=== PATIENT | male | born 1990 | race African-American/Black ===

== ENCOUNTER 2018-08-10 20:52 | Emergency (ER) | payer MEDICAID ==
[~2018-08-10] VITALS: Ht 188 cm; Wt 85.3 kg
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
[2018-08-10 21:50] VITALS: BP 139/72
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
--- NOTE | 2018-08-10 22:10 | NUR ---
ED Nurse Note: pt off to x-ray.
[2018-08-10] MEDS ORDERED: CYCLOBENZAPRINE10 MG ORAL (22:46)
[2018-08-10] MEDS ORDERED: IBUPROFEN600 MG ORAL (22:46)
[2018-08-10 22:55] VITALS: BP 139/72
--- NOTE | 2018-08-10 22:55 | NUR ---
ED Nurse Note: pt cleared to be d/c per ER provider, pt discharge and aftercare instruction provided w/ prescription, pt education done via discussion and handout, pt advised to follow up with pcp or return to ed if sx worsen or new sx develop, pt verbalized understanding and agrees with plan, vss, ambulatory w/steady gait, left w/ all belongings. arm sling applied.
--- NOTE | 2018-08-11 12:22 | Diagnostic Imaging Report ---
Indication: Pain Technique: XRAY Shoulder Compl R Comparison: None Findings: Bone mineralization within normal limits. There is no evidence of acute fracture or dislocation. Glenohumeral and acromioclavicular joints are maintained. Imaged portions of the right lung are clear. No radiopaque foreign body. Impression: No evidence of acute fracture or dislocation.
--- NOTE | 2018-08-11 12:23 | Diagnostic Imaging Report ---
Indication: Pain status post injury Technique: XRAY C Spine 2-3v Comparison: None Findings: Nonspecific straightening of the cervical lordosis without evidence to suggest spondylolisthesis. Vertebral body heights and disc spaces appear maintained. Anterior and lateral atlantodental intervals maintained. No evidence of dens fracture on open mouth views. No prevertebral soft tissue thickening. Imaged lung apices are clear. Likely tongue ring partially visualized. Impression: No radiographically appreciable acute cervical spine fracture.
== END 2018-08-10 23:00 | disposition home or self-care (01) ==
LOC: EMR 21:37
DX: S16.1XXA Strain of muscle, fascia and tendon at neck level, initial encounter (principal); S40.011A Contusion of right shoulder, initial encounter; S80.811A Abrasion, right lower leg, initial encounter; V49.49XA Driver injured in collision with other motor vehicles in traffic accident, initial encounter; Y92.410 Unspecified street and highway as the place of occurrence of the external cause; Z88.8 Allergy status to other drugs, medicaments and biological substances
CPT/HCPCS: 72040; 99283

== ENCOUNTER 2019-01-30 18:15 | Emergency (ER) | payer MEDICAID ==
[~2019-01-30] VITALS: Ht 188 cm; Wt 88.5 kg
[~2019-01-30 18:15] MED LIST: CYCLOBENZAPRINE10 MG ORAL; IBUPROFEN600 MG ORAL
[2019-01-30 18:19] VITALS: BP 129/63
[2019-01-30] MEDS ORDERED: ALBUTEROL2.5 MG/3 M INH (18:22)
--- NOTE | 2019-01-30 18:35 | NUR ---
ED Nurse Note: pt walked in to ED due to pain on right 4th digit toe. hitted himself on edge of furniture. no swelling or deformity noted. bruised noted on toe nail. able to move. ambulatory with steady gait. will wait for the further order.
--- NOTE | 2019-01-30 19:07 | NUR ---
HAND-OFF: Report given to DILMA Mitchell.
--- NOTE | 2019-01-30 19:58 | NUR ---
ED Nurse Note: Patient awaitying further review following radiology
--- NOTE | 2019-01-30 20:27 | Emergency Room Report ---
History of Present Illness General Chief Complaint: Lower Extremity Injury Source: Patient (Cooper Randall) Present Illness HPI 28-year-old male brought in by self complaining of right fourth toe injury. Patient stubbed right fourth toe against the curb 2 hours ago. Ambulatory. (Cooper Randall) Allergies: Coded Allergies: CEPHALEXIN (Verified Allergy, Unknown, 08/10/18) Patient History Past Medical History: none Past Surgical History: none Social History: Reports: smoking - marijuana (Cooper Randall) Nursing Documentation-[facility] Past Medical History: No History, Except For Hx Asthma: Yes (Cooper Randall) Review of Systems All Other Systems: negative except mentioned in HPI (Cooper Randall) Physical Exam Vital Signs Date Time Temp Pulse Resp B/P (MAP) Pulse Ox O2 Delivery O2 Flow Rate FiO2 01/30/19 18:19 98.2 84 18 129/63 (85) 96 Room Air Sp02 EP Interpretation: reviewed, normal Musculoskeletal: tender - right 4th toe with ecchymosis, sensation intact distally to light touch Neurologic: alert, oriented x3, responsive, motor strength/tone normal, sensory intact, speech normal (Cooper Randall) Medical Decision Making PA Attestation This patient was seen under the direct supervision of Dr. Tobin, who directed all aspects of care and diagnostic interpretation. (Cooper Randall) Diagnostic Impression: Primary Impression: Toe fracture, right ER Course ED course HPI: 28-year-old male brought in by self complaining of right fourth toe injury. Patient stubbed right fourth toe against the curb 2 hours ago. Ambulatory. Ddx: Fracture, contusion, sprain HPI & PE consistent with: Right toe fracture. Orders/ Interventions: Patient medicated with ibuprofen. Right 3rd and 4th toes buddytaped by RN- ASIF intact after. Right toe x-ray (interpreted by Dr. Tobin) shows possible fracture of the right fourth toe. Disposition: At this time pt. is stable for d/c to home. Will provide printed patient care instructions, and any necessary prescriptions. Care plan and follow up instructions have been discussed with the patient prior to discharge. Please note that this Emergency Department Report was dictated using [employer] technology software, occasionally this can lead to erroneous entry secondary to interpretation by the dictation equipment. (Cooper Randall) Other X-Ray Diagnostic Results Other X-Ray Diagnostic Results : X-Ray ordered: toes (right) # of Views/Limited Vs Complete: 3 View Indication: Pain PA Xray: Interpretation reviewed, by supervising - Dr. Tobin Interpretation: other - possible fracture? Electronically Signed by: Cooper Randall PA-C (Cooper Randall) Other X-Ray Diagnostic Results : Electronically Signed by: BLAIRE xray documentation reviewed by me and is accurate, Tony Tobin MD. (Tony Tobin MD) Last Vital Signs Date Time Temp Pulse Resp B/P (MAP) Pulse Ox O2 Delivery O2 Flow Rate FiO2 01/30/19 18:19 98.2 84 18 129/63 (85) 96 Room Air Status: unchanged (Cooper Randall) Disposition: HOME, SELF-CARE Condition: Improved Patient Instructions: Toe Fracture, Dent-fr-Jula Additional Instructions: Follow-up with PCP in 2 days return to ER if worsening symptoms, new symptoms or sudden change in condition. Cooper Randall Jan 30, 2019 20:27 Tony Tobin MD Feb 04, 2019 22:55
--- NOTE | 2019-01-30 20:36 | NUR ---
ER DISCHARGE NOTE: Patient is cleared to be discharged per ERMD, pt is aox4, on room air, with stable vital signs. pt was given dc instructions, No xray report available patient advised to retrun Thursday morning for the report. Neibour strapping of 3rd nd 4th toe with advice. pt was able to verbalize understanding, pt id band removed. pt is able to ambulate with steady gait. pt took all belongings.
--- NOTE | 2019-01-31 14:55 | Diagnostic Imaging Report ---
Indication: Trauma, pain Technique: 3 views of the right fourth toe Comparison: none Findings: No acute fractures. No dislocations. Joint spaces are preserved. Impression: Negative
== END 2019-01-30 20:37 | disposition home or self-care (01) ==
LOC: EMR 18:41
DX: S92.501A Displaced unspecified fracture of right lesser toe(s), initial encounter for closed fracture (principal); F12.10 Cannabis abuse, uncomplicated; J45.909 Unspecified asthma, uncomplicated; Z88.1 Allergy status to other antibiotic agents; W22.09XA Striking against other stationary object, initial encounter; Y92.480 Sidewalk as the place of occurrence of the external cause
CPT/HCPCS: 73660; Z7502; 99283